=== PATIENT | male | born 1995 | race Hispanic/Latino ===

== ENCOUNTER 2023-02-21 03:53 | Inpatient (IN) | payer SELFPAY ==
[~2023-02-21] VITALS: Ht 162.6 cm; Wt 69.4 kg
[2023-02-21] MEDS ORDERED: ISOVUE-370 76% 100ML VIAL As Ordered ONE (04:05)
[2023-02-21 04:26] LABS: HEMATOCRIT 40.2 % (42.0-52.0); HEMOGLOBIN 13.7 g/dl (13.5-17.5); MEAN CORPUSCULAR HEMOGLOBIN 29.3 pg (27.0-33.0); MEAN CORPUSCULAR HGB CONC 34.1 g/dl (32.0-36.5); MEAN CORPUSCULAR VOLUME 86.1 fl (80.0-96.0); PLATELET COUNT, AUTOMATED 233 10^3/uL (150-450); RED BLOOD COUNT 4.67 10^6/uL (4.30-6.10); WHITE BLOOD COUNT 7.7 10^3/uL (4.0-10.0)
[2023-02-21 04:40] LABS: AMPHETAMINES LEVEL URINE NEGATIVE (NEGATIVE); BARBITURATES URINE NEGATIVE (NEGATIVE); BENZODIAZEPINES URINE NEGATIVE (NEGATIVE); CANNABINOIDS URINE NEGATIVE (NEGATIVE); COCAINE METABOLITE URINE NEGATIVE (NEGATIVE); METHADONE URINE NEGATIVE (NEGATIVE); OPIATES URINE NEGATIVE (NEGATIVE); PHENCYCLIDINE URINE NEGATIVE (NEGATIVE)
[2023-02-21 04:44] LABS: ACETAMINOPHEN LEVEL < 2.0 UG/ML (10.0-20.0); ALBUMIN 4.1 G/DL (3.2-5.2); ALKALINE PHOSPHATASE 64 U/L (46-116); ALT/SGPT 20 U/L (7.0-40); AST/SGOT 13 U/L (<34); BILIRUBIN,DIRECT 0.1 MG/DL (<0.4); BILIRUBIN,TOTAL 0.4 MG/DL (0.3-1.2); BLOOD UREA NITROGEN 12 MG/DL (9-23); CALCIUM LEVEL 8.4 MG/DL (8.5-10.1); CARBON DIOXIDE LEVEL 23 MMOL/L (20-31); CHLORIDE LEVEL 105 MMOL/L (98-107); CREATININE FOR GFR 0.81 MG/DL (0.70-1.30); GLOMERULAR FILTRATION RATE > 60.0 (>60); GLUCOSE, FASTING 99 MG/DL (60-100); POTASSIUM SERUM 3.7 MMOL/L (3.5-5.1); SALICYLATE LEVEL < 3.0 MG/DL (<30); SODIUM LEVEL 141 MMOL/L (136-145); TOTAL PROTEIN 7.3 G/DL (5.7-8.2)
[2023-02-21 04:46] LABS: THYROID STIMULATING HORMONE 1.851 uIU/ML (0.55-4.78)
[2023-02-21 05:15] LABS: ETHYL ALCOHOL (ETHANOL) 0.318 % (0.000-0.010)
[2023-02-21] MEDS ORDERED: LORazepam 2 MG TAB PO PRN (06:35)
[2023-02-21] MEDS: THIAMINE 100 MG TAB PO SCH ×2 (08:15→22:13)
[2023-02-21] MEDS ORDERED: FOLIC ACID 1MG TAB PO SCH (09:00)
[2023-02-21] MEDS ORDERED: MULTIVITAMINS/MINERALS THERAP 1 TAB PO SCH (09:00)
[2023-02-21] MEDS ORDERED: MED REC CURRENTLY UNOBTAINABLE XX SCH (09:40)
[2023-02-21] MEDS ORDERED: diphenhydrAMINE 25MG CAP PO PRN (21:35)
[2023-02-21] MEDS ORDERED: LORazepam 1 MG TAB PO PRN (21:35)
[2023-02-21] MEDS ORDERED: MOM 30ML SUSPENSION UDC PO PRN (21:35)
[2023-02-21] MEDS ORDERED: MAALOX 30 ML SUSP *UDC PO PRN (21:35)
[2023-02-21] MEDS ORDERED: NICOTINE 21MG/24HR 1 EA TRANSDERMAL TD PRN (21:35)
[2023-02-21] MEDS ORDERED: IBUPROFEN 400MG TAB PO PRN (21:35)
[2023-02-21] MEDS ORDERED: ACETAMINOPHEN TAB 650MG DOSE (2X325MG) PO PRN (21:35)
[2023-02-21] MEDS ORDERED: traZODone 50 MG TAB PO PRN (21:35)
[2023-02-21] MEDS ORDERED: HOME MED LIST COMPLETE! XX SCH (22:50)
[2023-02-22] MEDS ORDERED: UNRESOLVED CLARIFICATION ENTRY XX SCH (00:01)
[2023-02-22] MEDS ORDERED: LORazepam 2 MG TAB PO PRN (03:50)
[2023-02-22 04:16] VITALS: BP 144/77; O2SAT 98
[2023-02-22 04:30] VITALS: BP 144/77
[2023-02-22] MEDS ORDERED: PILL CUTTER 1 EACH XX PRN (09:00)
[2023-02-22] MEDS: FOLIC ACID 1MG TAB PO SCH (09:04)
[2023-02-22] MEDS: MULTIVITAMINS/MINERALS THERAP 1 TAB PO SCH (09:04)
[2023-02-22] MEDS: THIAMINE 100 MG TAB PO SCH ×2 (09:04→20:45)
[2023-02-22] MEDS: NALTREXONE 50 MG TAB PO SCH (09:04)
[2023-02-22 13:54] VITALS: BP 126/66; TEMP 97.3; O2SAT 97
[2023-02-22 14:00] VITALS: BP 126/66
[2023-02-22 18:44] VITALS: BP 113/61; TEMP 97.6; O2SAT 100
[2023-02-23 06:30] VITALS: BP 109/58; TEMP 97.6; O2SAT 100
[2023-02-23 09:07] VITALS: BP 130/50
[2023-02-23] MEDS: THIAMINE 100 MG TAB PO SCH (09:10)
[2023-02-23] MEDS: NALTREXONE 50 MG TAB PO SCH (09:10)
[2023-02-23] MEDS: MULTIVITAMINS/MINERALS THERAP 1 TAB PO SCH (09:10)
[2023-02-23] MEDS: FOLIC ACID 1MG TAB PO SCH (09:10)
[2023-02-23] MEDS ORDERED: THIA100TA PO (10:26)
[2023-02-23] MEDS ORDERED: NICO21PAT TD (10:26)
[2023-02-23] MEDS ORDERED: NALT50TA4 PO (10:26)
== END 2023-02-23 10:47 | disposition home or self-care (01) | DRG 775 ==
LOC: M ED 03:53 → EDBD 03:53 → M ED INP 21:32 → M PSY 02-22 03:45
PROVIDERS: ADMIT Psychiatry & Neurology Psychiatry; ATTEND Student in an Organized Health Care Education/Training Program
DX: F10.24 Alcohol dependence with alcohol-induced mood disorder (principal); F17.290 Nicotine dependence, other tobacco product, uncomplicated; F43.20 Adjustment disorder, unspecified